=== PATIENT | male | born 1985 ===

== ENCOUNTER 2017-02-14 18:22 | Emergency (ER) | payer BC ==
--- NOTE | 2017-02-14 19:07 | UC ---
Throat Pain/Nasal Dawit HPI - HPI Summary HPI Summary: FIVE DAYS AGO BEGAN TO HAVE RIGHT SIDED TONSILLAR SWELLING AND DISCOMFORT. NO FEVER. NO RASH. NO DIFFICULTY BREATHING. - History of Current Complaint Chief Complaint: UCRespiratory Stated Complaint: SORE THROAT Time Seen by Provider: 02/14/17 18:30 Hx Obtained From: Patient Onset/Duration: Gradual Onset, Lasting Days, Still Present Severity: Mild Cough: None Associated Signs & Symptoms: Positive: Hoarseness. Negative: Sinus Discomfort, Nasal Discharge, Fever - Epiglottits Risk Factors Epiglottis Risk Factors: Negative - Allergies/Home Medications Allergies/Adverse Reactions: Allergies Allergy/AdvReac Type Severity Reaction Status Date / Time No Known Allergies Allergy Verified 02/14/17 18:28 PMH/Surg Hx/FS Hx/Imm Hx Previously Healthy: Yes - Surgical History Surgical History: None - Family History Known Family History: Negative: Respiratory Disease - Social History Occupation: Student Lives: With Family Alcohol Use: Occasionally Substance Use Type: None Smoking Status (MU): Never Smoked Tobacco Review of Systems Constitutional: Negative Skin: Negative Eyes: Negative ENT: Sore Throat Respiratory: Negative Cardiovascular: Negative Gastrointestinal: Negative Genitourinary: Negative Motor: Negative Neurovascular: Negative Musculoskeletal: Negative Neurological: Negative Psychological: Negative All Other Systems Reviewed And Are Negative: Yes Physical Exam Triage Information Reviewed: Yes Appearance: Well-Appearing, No Pain Distress, Well-Nourished Vital Signs: Initial Vital Signs Temp 97.0 F 02/14/17 18:26 Pulse 82 02/14/17 18:26 Resp 12 02/14/17 18:26 BP 138/89 02/14/17 18:26 Pulse Ox 98 02/14/17 18:26 Vital Signs Reviewed: Yes Eye Exam: Normal ENT: Positive: Pharyngeal erythema, TMs normal, Tonsillar swelling - RIGHT SIDED , Tonsillar exudate Dental Exam: Normal Neck exam: Normal Neck: Positive: Supple, Nontender, No Lymphadenopathy Respiratory Exam: Normal Respiratory: Positive: Chest non-tender, Lungs clear, Normal breath sounds, No respiratory distress Cardiovascular Exam: Normal Abdominal Exam: Normal Musculoskeletal Exam: Normal Neurological Exam: Normal Psychological Exam: Normal Skin Exam: Normal Throat Pain/Nasal Course/Dx - Differential Dx/Diagnosis Differential Diagnosis/HQI/PQRI: Peritonsillar Abscess, Tonsillitis, URI Provider Diagnoses: RIGHT SIDED TONSILLITIS Discharge - Discharge Plan Condition: Stable Disposition: HOME Prescriptions: Clindamycin Cap(NF) [Cleocin 300 mg Cap(NF)] 300 mg PO TID #30 cap Patient Education Materials: Peritonsillar Abscess (ED), Tonsillitis (ED) Referrals: [facility] [Outside] [facility] [Outside] Naga Zhou MD [Medical Doctor] - Additional Instructions: Please seek continued evaluation at the Emergency Department if your symptoms worsen or if new symptoms develop.
== END 2017-02-14 19:05 | disposition home or self-care (01) ==
LOC: UCEAST 18:22
DX: J03.90 Acute tonsillitis, unspecified (principal)
CPT/HCPCS: 87651; 99202; G0463